=== PATIENT | female | born 1990 | race American Indian/Alaskan Native ===

== ENCOUNTER 2020-05-24 23:50 | Emergency (ER) | payer SELFPAY ==
[2020-05-25] MEDS ORDERED: ACETAMINOPHEN 500 MG TAB PO ONE (00:22)
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
[2020-05-25 00:54] LABS: Basophils % (Auto) 0.2 % (0.0-1.8); Eosinophils # (Auto) 0.1 K/mm3 (0.0-0.4); Eosinophils % (Auto) 1.2 % (0.0-4.3); Hematocrit 34.5 % (30.3-42.9); Hemoglobin 11.3 gm/dl (10.1-14.3); Lymphocytes # (Auto) 2.1 K/mm3 (1.2-5.4); Lymphocytes % (Auto) 18.8 % (13.4-35.0); Mean Corpuscular HGB Conc 33 % (30-34); Mean Corpuscular Volume 84 fl (79-97); Monocytes # (Auto) 0.7 K/mm3 (0.0-0.8); Monocytes % (Auto) 6.6 % (0.0-7.3); Platelet Count 212 K/mm3 (140-440); Red Cell Distribution Width 13.4 % (13.2-15.2)
[2020-05-25 01:10] LABS: Bacteria,Urine 4+ /HPF (Negative); Bilirubin,Urine NEG (Negative); Blood,Urine NEG (Negative); Color,Urine Amber (Yellow); Mucus,Urine 3+ /HPF; WBC,Urine > 182.0 /HPF (0.0-6.0)
[2020-05-25 01:17] LABS: Alanine Aminotransferase 28 units/L (7-56); Albumin 3.8 g/dL (3.9-5); Blood Urea Nitrogen 13 mg/dL (7-17); Calcium 9.8 mg/dL (8.4-10.2); Hemolysis Index 5
[2020-05-25 01:23] LABS: BUN/Creatinine Ratio 22
[2020-05-25 02:35] VITALS: BP 154/83
== END 2020-05-25 01:08 | disposition home or self-care (01) ==
LOC: ED 23:50
DX: M62.830 Muscle spasm of back (principal); N39.0 Urinary tract infection, site not specified; B37.3 Candidiasis of vulva and vagina; E11.9 Type 2 diabetes mellitus without complications; Z79.899 Other long term (current) drug therapy
CPT/HCPCS: 36415; 80053; 81001; 84703; 85025

== ENCOUNTER 2020-08-01 12:28 | Outpatient (CLI) | payer OTHER, MEDICARE ==
[2020-08-01 13:18] LABS: Bacteria,Urine 3+ /HPF (Negative); Bilirubin,Urine NEG (Negative); Blood,Urine NEG (Negative); Color,Urine Amber (Yellow); Mucus,Urine 3+ /HPF
[2020-08-01] MEDS ORDERED: LACTATED RINGERS 1,000 ML IV ONE (13:52)
[2020-08-01] MEDS ORDERED: metroNIDAZOLE 500 MG TAB PO ONE (16:00)
[2020-08-01 16:03] VITALS: BP 124/60
== END 2020-08-01 16:30 | disposition home or self-care (01) ==
LOC: TRG 12:28 → APU 12:29 → TRG 16:30
PROVIDERS: ATTEND Obstetrics & Gynecology
DX: O26.893 Other specified pregnancy related conditions, third trimester (principal); R10.9 Unspecified abdominal pain; O47.03 False labor before 37 completed weeks of gestation, third trimester; O13.3 Gestational [pregnancy-induced] hypertension without significant proteinuria, third trimester; O24.813 Other pre-existing diabetes mellitus in pregnancy, third trimester; O99.343 Other mental disorders complicating pregnancy, third trimester; F31.9 Bipolar disorder, unspecified; Z3A.29 29 weeks gestation of pregnancy
CPT/HCPCS: 59025; 81001; 96361; 96365; J0690; J7120; 96360

== ENCOUNTER 2020-08-18 00:56 | Outpatient (CLI) | payer OTHER, MEDICARE ==
[2020-08-18] MEDS ORDERED: LACTATED RINGERS 500 ML IV ONE (01:24)
[2020-08-18] MEDS ORDERED: ACETAMINOPHEN 325 MG TAB PO ONE (01:46)
[2020-08-18 01:55] LABS: Bacteria,Urine 2+ /HPF (Negative); Bilirubin,Urine NEG (Negative); Blood,Urine NEG (Negative); Color,Urine Amber (Yellow); Mucus,Urine 3+ /HPF
[2020-08-18 02:18] VITALS: BP 121/72
== END 2020-08-18 02:57 | disposition home or self-care (01) ==
LOC: TRG 00:56 → APU 00:58 → TRG 02:57
PROVIDERS: ATTEND Obstetrics & Gynecology
DX: Z34.93 Encounter for supervision of normal pregnancy, unspecified, third trimester (principal); Z3A.32 32 weeks gestation of pregnancy
CPT/HCPCS: 59025; 81001; 87086